=== PATIENT | female | born 1995 | race Caucasian/White ===

== ENCOUNTER → 2020-09-01 | Day surgery (SDC) | payer BC, OTHER ==
[~2020-09-01] MED LIST: FLUOXETINE HCL20 M1 PO; GLUCOPHAGE 500500 MG PO; IBUPROFEN600 MG PO
== END | disposition home or self-care (01) ==
LOC: OR 09:56
DX: K21.00 Gastro-esophageal reflux disease with esophagitis, without bleeding (principal); K22.10 Ulcer of esophagus without bleeding; K29.50 Unspecified chronic gastritis without bleeding; K58.0 Irritable bowel syndrome with diarrhea; K76.0 Fatty (change of) liver, not elsewhere classified; K22.8 Other specified diseases of esophagus; R16.2 Hepatomegaly with splenomegaly, not elsewhere classified; E28.2 Polycystic ovarian syndrome; E66.01 Morbid (severe) obesity due to excess calories; Z68.36 Body mass index [BMI] 36.0-36.9, adult; R74.01 Elevation of levels of liver transaminase levels; Z79.899 Other long term (current) drug therapy; Z87.891 Personal history of nicotine dependence; Z79.84 Long term (current) use of oral hypoglycemic drugs
CPT/HCPCS: 84703; J2704; J7040